=== PATIENT | male | born 1965 | race Caucasian/White ===

== ENCOUNTER 2017-07-08 06:38 | Emergency (ER) | payer BC ==
[2017-07-08] MEDS ORDERED: predniSONE 20 MG Tab ONE (07:11)
[2017-07-08] MEDS: predniSONE 20 MG Tab PO SCH ×2 (07:31→07:32)
--- NOTE | 2017-07-08 08:23 | EDM.PDOC ---
ED HPI GENERAL MEDICAL PROBLEM - General Chief Complaint: Skin Complaint Stated Complaint: POST STREP RASH Time Seen by Provider: 07/08/17 06:50 Source of Information: Reports: Patient History Limitations: Reports: No Limitations - History of Present Illness INITIAL COMMENTS - FREE TEXT/NARRATIVE: Patient is a 52 year old man who has had a rash for the last week. He saw his Family Physician in the [facility] 2 days ago who diagnosed strep throat and started him on Augmentin. His rash started to itch more yesterday once he started the antibiotic and now it is much worse. His eyes were swelling shut this am but he took more Benedryl and Zyrtec and by the time he got here they were going down. He has had no breathing difficulty and no swelling in his tongue or mouth. 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 Medication(s) (Antihistamines.) - Related Data Allergies Allergy/AdvReac Type Severity Reaction Status Date / Time No Known Allergies Allergy Verified 07/08/17 07:19 Home Meds: Home Meds Amoxicillin/Clavulanate K [Augmentin 875-125 MG] 125 - 875 mg PO BID 07/08/17 [ History] Cetirizine HCl [Zyrtec] 10 mg PO DAILY 07/08/17 [History] Ethosuximide [Zarontin] 500 mg PO Q12HR 07/08/17 [History] carBAMazepine [Tegretol] 200 mg PO BID 07/08/17 [History] diphenhydrAMINE HCl [Benadryl] 50 mg PO Q4HR 07/08/17 [History] Past Medical History Neurological History: Reports: Seizure Other Neuro History: seizures since teenager Oncologic (Cancer) History: Reports: Colon, Other (See Below) Other Oncologic History: finished chemo in 02/2016 - Past Surgical History Neurological Surgical History: Reports: None Social & Family History - Family History Family Medical History: Noncontributory - Tobacco Use Smoking Status *Q: Never Smoker Second Hand Smoke Exposure: No - Caffeine Use Caffeine Use: Reports: Coffee - Recreational Drug Use Recreational Drug Use: No ED ROS GENERAL - Review of Systems Review Of Systems: See Below Constitutional: Reports: Other (Rash) HEENT: Reports: Other (Eyelids swelling.) Respiratory: Reports: No Symptoms Cardiovascular: Reports: No Symptoms Endocrine: Reports: No Symptoms GI/Abdominal: Reports: No Symptoms : Reports: No Symptoms Musculoskeletal: Reports: No Symptoms Skin: Reports: Rash Neurological: Reports: No Symptoms Psychiatric: Reports: No Symptoms Hematologic/Lymphatic: Reports: No Symptoms Immunologic: Reports: No Symptoms ED EXAM, SKIN/RASH Exam: See Below Exam Limited By: No Limitations General Appearance: Moderate Distress, Other (Eyes initially swelling.) Eye Exam: Bilateral Eye: EOMI, Normal Fundi, Normal Inspection, PERRL Ears: Normal External Exam, Normal Canal, Hearing Grossly Normal, Normal TMs Nose: Normal Inspection, Normal Mucosa, No Blood Throat/Mouth: Normal Inspection, Normal Lips, Normal Teeth, Normal Gums, Normal Oropharynx, Normal Voice, No Airway Compromise Head: Atraumatic, Normocephalic Neck: Normal Inspection, Supple, Non-Tender, Full Range of Motion Respiratory/Chest: No Respiratory Distress, Lungs Clear, Normal Breath Sounds, No Accessory Muscle Use, Chest Non-Tender Cardiovascular: Normal Peripheral Pulses, Regular Rate, Rhythm, No Edema, No Gallop, No JVD, No Murmur, No Rub GI/Abdominal: Normal Bowel Sounds, Soft, Non-Tender, No Organomegaly, No Distention, No Abnormal Bruit, No Mass Back Exam: Normal Inspection, Full Range of Motion, NT Extremities: Normal Inspection, Normal Range of Motion, Non-Tender, No Pedal Edema, Normal Capillary Refill Neurological: Alert, Oriented, CN II-XII Intact, Normal Cognition, Normal Gait, Normal Reflexes, No Motor/Sensory Deficits Psychiatric: Normal Affect, Normal Mood Location, Skin: Generalized Characteristics: Maculopapular, Urticarial, Erythematous Associated features: Warmth, Tenderness, Swelling, Induration Lymphatic: No Adenopathy Course - Vital Signs Text/Narrative:: Uneventful ED course. He did improve with the Prednisone and felt better. His labs showed elevated Neutrophils, mildly elevated liver enzymes and a low sodium. He will go back to the [facility] ED for further evaluation. The closest rash that I have seen like this was an Urticarial Vasculitis and he will need to have a Dermtology consult. They will stop at other ED's if the reaction worsens. He is improving at this time. Last Recorded V/S: Last Vital Signs Temp 36.9 C 07/08/17 06:40 Pulse 119 H 07/08/17 06:40 Resp 16 07/08/17 06:40 BP 94/78 07/08/17 06:40 Pulse Ox 100 07/08/17 06:40 - Orders/Labs/Meds Orders: Active Orders 24 hr Category Date Time Status predniSONE Med 07/09/17 07:00 Active 60 mg PO WITHBREAKFAST Medication Orders Prednisone (Prednisone) 60 mg PO WITHBREAKFAST GATO Last Admin: 07/08/17 07:32 Dose: 60 mg Admin: 07/08/17 07:31 Dose: Not Given Labs: Laboratory Tests 07/08/17 07/08/17 Range/Units 07:20 07:20 WBC 8.1 (4.0-11.0) K/uL RBC 4.21 L (4.50-6.50) M/uL Hgb 13.2 (13.0-18.0) g/dL Hct 38.3 L (40.0-54.0) % MCV 91 (76-96) fL MCH 31.4 (27.0-32.0) pg MCHC 34.5 (31.0-35.0) g/dL RDW 12.7 (11.0-16.0) % Plt Count 201 (150-400) K/uL MPV 9.0 (6.0-10.0) fL Neut % (Auto) 89.7 H (45.0-70.0) % Lymph % (Auto) 2.4 L (20.0-40.0) % [place] % (Auto) 3.8 (3.0-10.0) % Eos % (Auto) 4.1 (1.0-5.0) % Baso % (Auto) 0.0 (0.0-0.5) % Neut # (Auto) 7.25 (2.00-7.50) K/uL Lymph # (Auto) 0.19 L (1.50-4.00) K/uL [place] # (Auto) 0.31 (0.20-0.80) K/uL Eos # (Auto) 0.33 (0.04-0.40) K/uL Baso # (Auto) 0.00 L (0.02-0.10) K/uL Sodium 128 L (136-145) mmol/L Potassium 4.3 (3.5-5.1) mmol/L Chloride 93 L (98-107) mmol/L Carbon Dioxide 27.0 (21.0-32.0) mmol/L Anion Gap 12.3 (5.0-15.0) mmol/L BUN 11 (8-26) mg/dL Creatinine 1.27 (0.70-1.30) mg/dL Est Cr Clr Drug Dosing 69.59 mL/min Estimated GFR (MDRD) > 60 (>60) MLS/MIN BUN/Creatinine Ratio 8.7 (6-25) Glucose 133 H (74-100) mg/dL Calcium 8.2 L (8.5-10.1) mg/dL Total Bilirubin 1.0 (0.0-1.0) mg/dL AST 50 H (15-37) U/L ALT 76 (12-78) U/L Alkaline Phosphatase 115 (46-116) U/L Total Protein 7.5 (6.4-8.2) g/dL Albumin 2.7 L (3.4-5.0) g/dL Globulin 4.8 H (2.2-4.2) g/dL Albumin/Globulin Ratio 0.6 L (0.8-2.0) Meds: Medications Generic Name Dose Route Start Last Admin Trade Name Freq PRN Reason Stop Dose Admin Prednisone 60 mg 07/09/17 07:00 07/08/17 07:32 Prednisone PO 60 mg WITHBREAKFAST GATO Administration Discontinued Medications Generic Name Dose Route Start Last Admin Trade Name Freq PRN Reason Stop Dose Admin Prednisone Confirm 07/08/17 07:11 07/08/17 07:31 Prednisone Administered 07/08/17 07:12 Not Given Dose 60 mg .ROUTE .STK-MED ONE Departure - Departure Time of Disposition: 08:34 Disposition: Home, Self-Care 01 Condition: Good Clinical Impression: Urticaria, Urticaria medicamentosa - Discharge Information Instructions: Prednisone tablets Referrals: PCP,None [Primary Care Provider] - Forms: ED Department Discharge Care Plan Goals: Go to emergency room when you get home. Suggested [facility] or [facility] with cable ferry operator available. Could possibly be vasculitis per Dr. Tucker. Sodium is low and needs to be evaluated. If any breathing problems develop on the way to home go to an ER immediately. - My Orders Last 24 Hours: My Active Orders 07/09/17 07:00 predniSONE 60 mg PO WITHBREAKFAST - Assessment/Plan Last 24 Hours: My Active Orders 07/09/17 07:00 predniSONE 60 mg PO WITHBREAKFAST
== END 2017-07-08 08:30 | disposition home or self-care (01) ==
LOC: LB.ED 06:38
DX: L50.0 Allergic urticaria (principal); T50.905A Adverse effect of unspecified drugs, medicaments and biological substances, initial encounter
CPT/HCPCS: 36415; 80053; 85025; 85651; 99283; A9270